=== PATIENT | female | born 1995 | race Caucasian/White ===

== ENCOUNTER 2017-08-29 19:08 | Emergency (ER) | payer BC ==
[2017-08-29] MEDS ORDERED: EPINEPHRINE 1 MG/ML 1 ML VIAL SUBCUT ONE (19:22)
[2017-08-29] MEDS ORDERED: Albuterol 2.5 MG/3 ML NEB.SOL* (0.083%) INH ONE (19:24)
[2017-08-29] MEDS ORDERED: diPHENhydraMINE IV* 50 MG/ML 1 ml VIAL (BENADRYL) IV ONE (19:25)
[2017-08-29] MEDS ORDERED: Famotidine IV* 10 MG/ML 2 ML (20 mg) IV SLOW PU ONE (19:25)
[2017-08-29] MEDS ORDERED: methylPREDNISolone 125 MG* 2 ML VIAL IV ONE (19:25)
--- NOTE | 2017-08-29 19:27 | UC ---
General HPI - HPI Summary HPI Summary: around 3pm, pt ate a bar with cashews. a short time later she noted itching to her tongue, throat swelling and tightness in her chest. she took a benadryl at about 3pm, 25mg and another 25mg at 3:30pm. pt did vomit after the benadryl and it only made her feel a little sleepy. she admits to wheezing, sob and nausea. no cp, vomiting or diarrhea. she had this happened once or twice before but it was very mild and improved with benadryl. - History of Current Complaint Stated Complaint: ALLERGIC REACTION - THROAT SWELLING Time Seen by Provider: 08/29/17 19:15 Hx Obtained From: Patient, Family/Onsite Case Manager Hx Last Menstrual Period: 12/15/13 Timing: Constant Alleviating: nothing Associated Signs & Symptoms: Positive: Nausea, SOB, Wheezing - Allergy/Home Medications Allergies/Adverse Reactions: Allergies Allergy/AdvReac Type Severity Reaction Status Date / Time cefaclor [From [facility]] Allergy Intermediate Rash Verified 08/29/17 19:17 Home Medications: Home Medications Norgestimate-Eth Estradiol(NF) [Ortho Tri-Cyclen (NF)] 1 tab PO DAILY 08/29/17 [ History Confirmed 08/29/17] PMH/Surg Hx/FS Hx/Imm Hx Previously Healthy: Yes - Surgical History Surgical History: Yes Surgery Procedure, Year, and Place: tonsillectomy - Family History Known Family History: Positive: None - Social History Occupation: Student Lives: With Family Alcohol Use: None Substance Use Type: None Smoking Status (MU): Never Smoked Tobacco - Immunization History Vaccination Up to Date: Yes Review of Systems Constitutional: Negative Skin: Negative Eyes: Negative ENT: Negative Respiratory: Shortness Of Breath Cardiovascular: Negative Gastrointestinal: Vomiting, Nausea Genitourinary: Negative Motor: Negative Neurovascular: Negative Musculoskeletal: Negative Neurological: Negative Psychological: Negative Is Patient Immunocompromised?: No All Other Systems Reviewed And Are Negative: Yes Physical Exam Triage Information Reviewed: Yes Appearance: Well-Appearing Vital Signs Reviewed: Yes Eyes: Positive: Conjunctiva Clear ENT: Positive: TMs normal, Other - mild to moderate swelling lower lip. moderate uvular edema. no stridor or difficulty with swallowing.. Negative: Nasal congestion, Nasal drainage, Muffled voice, Hoarse voice Neck: Positive: Supple, Nontender, No Lymphadenopathy Respiratory: Positive: No respiratory distress, Decreased breath sounds Cardiovascular: Positive: RRR, No Murmur Abdomen Description: Positive: Nontender, No Organomegaly, Soft. Negative: Distended, Guarding Bowel Sounds: Positive: Present Musculoskeletal: Positive: ROM Intact Neurological: Positive: Alert Psychological: Positive: Normal Response To Family, Age Appropriate Behavior Skin Exam: Other - Flushed. Re-Evaluation - Re-Evaluation Second Eval Change: Improved - much improved aeration. swelling of lower lip improving. pt notes easier to breathe. uvular edema unchanged. Course/Dx - Course Course Of Treatment: 20:10= lip not longer swollen, nausea and sob resolved. slightly improved uvular edema and no throat tightness. 20:54= c/o mild nausea otherwise much improved with no lip swelling, sob, throat tightness but uvular edema remains. 21:31= worsening nausea and actively vomiting despite tx. continue to have uvular edema. thus will send to the ER for ongoing evaluation and tx. EMS transfer advised; however, pt and mom rfusing due to cost despite risk of mva, delay of care, worsening, disability and . Report given to Jacob Light including hx, pe, tx and ongoing n/v and uvular edema. advised this is anaphylactic and pt refusing ems thus coming via car . mom is driving. - Differential Dx - Multi-Symptom Provider Diagnoses: anaphylactic reaction Discharge - Sign-Out/Discharge Documenting (check all that apply): Discharge/Admit/Transfer - Discharge Plan Condition: Stable Disposition: TRANS [facility]ARE FAC Referrals: Miguel Price MD [Primary Care Provider] - Additional Instructions: LEAVE HERE AND GO DIRECTLY TO [facility] ER DISCUSSED - Billing Disposition and Condition Condition: STABLE Disposition: EMTALA
[2017-08-29] MEDS ORDERED: NS 0.9% 1000 ML* 1,000 ML IV ONE (19:37)
[2017-08-29] MEDS ORDERED: Ondansetron ODT TAB* 4 MG PO ONE (20:53)
[2017-08-29 21:32] VITALS: BP 102/43
== END 2017-08-29 21:42 | disposition short-term general hospital (02) ==
LOC: UCCORT 19:08
DX: T78.2XXA Anaphylactic shock, unspecified, initial encounter (principal)
CPT/HCPCS: 96361; 96372; 96374; 96375; 99203; A9270-GY; G0463; J1200; J2930